=== PATIENT | female | born 1995 | race Caucasian/White ===

== ENCOUNTER 2019-09-22 14:04 | Emergency (ER) | payer SELFPAY ==
[2019-09-22] MEDS ORDERED: ACETAMINOPHEN 500 MG TABLET (FP) PO ONE (14:30)
--- NOTE | 2019-09-22 14:30 | PDOC ---
Rapid Medical Evaluation Time Seen by Provider: 09/22/19 14:29 Medical Evaluation: Allergies Allergy/AdvReac Type Severity Reaction Status Date / Time amoxicillin [From Augmentin] Allergy Verified 09/22/19 14:26 clavulanic acid Allergy Verified 09/22/19 14:26 [From Augmentin] 09/22/19 14:29 CC: fever, cough, body aches x3 days. PE: HR-107. No focal findings. No menses x2 months. negative home test x3. Orders: tylenol Patient will proceed to the ED for further evaluation. Discharge Disposition - Diagnosis Influenza-like symptoms - Referrals - Patient Instructions - Post Discharge Activity
[2019-09-22 14:32] VITALS: BP 131/87; PULSE 107; TEMP 99.2; BMI 30.4
[2019-09-22] MEDS ORDERED: ACETAMINOPHEN 325 MG TABLET (FP) ONE (14:54)
--- NOTE | 2019-09-22 17:17 | PDOC ---
History of Present Illness - General Chief Complaint: Cold Symptoms Stated Complaint: FLU SYMPTOMS Time Seen by Provider: 09/22/19 14:29 - History of Present Illness Initial Comments: 09/22/19 17:16 24-year-old female without comorbidities with flulike symptoms x2 days and concern for with negative test at home and 2 months of missed menses Past History - Past Medical History Allergies/Adverse Reactions: Allergies Allergy/AdvReac Type Severity Reaction Status Date / Time amoxicillin [From Augmentin] Allergy Verified 09/22/19 14:26 clavulanic acid Allergy Verified 09/22/19 14:26 [From Augmentin] Home Medications: Ambulatory Orders Oseltamivir Phosphate [Tamiflu] 75 mg PO BID #10 capsule 09/22/19 COPD: No - Psycho Social/Smoking Cessation Hx Smoking History: Current every day smoker Have you smoked in the past 12 months: Yes Number of Cigarettes Smoked Daily: 6 Information on smoking cessation initiated: Yes Hx Alcohol Use: No Drug/Substance Use Hx: No Review of Systems - Review of Systems Constitutional: Yes: Chills, Fever, Malaise, Night Sweats HEENTM: Yes: Nose Congestion Respiratory: Yes: Cough *Physical Exam - Vital Signs Last Vital Signs Temp Pulse Resp BP Pulse Ox 99.2 F 107 H 20 131/87 100 09/22/19 14:27 09/22/19 14:27 09/22/19 14:27 09/22/19 14:27 09/22/19 14:27 - Physical Exam 09/22/19 17:17 GENERAL: The patient is awake, alert, and fully oriented, in no acute distress. HEAD: Normal with no signs of trauma. EYES: sclera anicteric, conjunctiva clear. ENT: Ears normal tympanic membranes normal oropharynx clear uvula midline NECK: Normal range of motion LUNGS: Breath sounds equal, clear to auscultation bilaterally. No wheezes, and no crackles. HEART: S1 and S2 without murmur, rub or gallop. ABDOMEN: Soft, nontender, normoactive bowel sounds. No guarding, no rebound. No masses. EXTREMITIES: Normal range of motion, no edema. No clubbing or cyanosis. No cords, erythema, or tenderness. NEUROLOGICAL: Cranial nerves II through XII grossly intact. PSYCH: Normal mood, normal affect. SKIN: Warm, Dry, normal turgor, no rashes or lesions noted. ED Treatment Course - ADDITIONAL ORDERS Additional order review: Laboratory Results 09/22/19 15:30 Serum , Qual Negative - Medications Given in the ED: ED Medications Discontinued Medications Generic Name Dose Route Start Last Admin Trade Name Priya PRN Reason Stop Dose Admin Acetaminophen 1,000 mg 09/22/19 14:30 09/22/19 14:53 Tylenol - PO 09/22/19 14:31 1,000 mg ONCE ONE Administration Medical Decision Making - Medical Decision Making 09/22/19 17:17 We will treat for influenza based on symptoms patient not Discharge - Discharge Information Problems reviewed: Yes Clinical Impression/Diagnosis: Influenza-like symptoms Condition: Stable Disposition: HOME - Admission No - Additional Discharge Information Prescriptions: Oseltamivir Phosphate [Tamiflu] 75 mg PO BID #10 capsule - Follow up/Referral - Patient Discharge Instructions Patient Printed Discharge Instructions: DI for Viral Upper Respiratory Infection -- Adult Additional Instructions: Tylenol Motrin as directed for fever and body aches. Return to the emergency room for worsening symptoms and without fail follow-up with your primary care physician in 1 to 2 days for further evaluation and treatment options. Please take the Tamiflu as directed. Your test was negative today. - Post Discharge Activity
== END 2019-09-22 17:39 | disposition home or self-care (01) ==
LOC: JERFT 14:04
DX: J11.1 Influenza due to unidentified influenza virus with other respiratory manifestations (principal); F17.210 Nicotine dependence, cigarettes, uncomplicated
CPT/HCPCS: 36415; 84703; 99282-25